=== PATIENT | male | born 1995 | race Caucasian/White ===

== ENCOUNTER 2016-09-26 14:15 | Emergency (ER) | payer SELFPAY ==
[~2016-09-26] VITALS: Ht 185.4 cm; Wt 72.5 kg
[2016-09-26 14:16] VITALS: BP 132/74; PULSE 72; RESP 20; TEMP 98.4; O2SAT 100
--- NOTE | 2016-09-26 14:20 | PD ---
Physical Exam Time Seen by Provider: 14:19 Narrative 20yo M c/o LUQ abd pain x 3 weeks. Dizziness a few days ago. Deneis N, V. + diarrhea. Patient seen in triage. VS reviewed. Awaiting bed placement. Data Data Last Documented VS Vital Signs Date Time Temp Pulse Resp B/P Pulse Ox O2 Delivery O2 Flow Rate FiO2 09/26/16 14:16 98.4 72 20 132/74 100 Room Air MDM Supervised Visit with BROCK: No Scripts No Active Prescriptions or Reported Meds Zohra Cruz September 26, 2016 14:20
[2016-09-26] MEDS ORDERED: SODIUM CHLOR 0.9% 1000 ML INJ 1,000 ML IV SCH (15:05)
--- NOTE | 2016-09-26 15:09 | PD ---
HPI Chief Complaint: Abdominal Pain Time Seen by Provider: 15:00 Travel History International Travel<30 days: No Contact w/Intl Traveler<30days: No Traveled to known affect area: No History of Present Illness HPI 20-year-old male presents for evaluation of left upper quadrant abdominal pain. Symptoms started 3 weeks ago. Describes it as a sharp pain that comes and goes, seems to be worse when he is eating or when he is working. He endorses 1- 2 episodes of diarrhea today as well. He has no pain currently but he had an episode of pain this morning while at work which prompted evaluation. Denies any nausea, vomiting, flank pain, fevers or chills, dysuria, testicular or scrotal pain. He denies any NSAID use. Never had this pain before. He endorses a brief episode of dizziness a few days ago during review of systems. No other complaints. [facility] Past Medical History Anxiety: Yes Past Surgical History Abdominal Surgery: Yes Social History Alcohol Use: No Tobacco Use: Yes Substance Use: Yes (marijuana) Allergies-Medications (Allergen,Severity, Reaction): Coded Allergies: No Known Allergies (Unverified , 09/26/16) Reported Meds & Prescriptions Reported Meds & Active Scripts Active No Active Prescriptions or Reported Medications Review of Systems Except as stated in HPI: all other systems reviewed are Neg Physical Exam Narrative GENERAL: Well-developed well-nourished male in no acute distress SKIN: Warm and dry. HEAD: Atraumatic. Normocephalic. EYES: Pupils equal and round. No scleral icterus. No injection or drainage. ENT: No nasal bleeding or discharge. Mucous membranes pink and moist. NECK: Trachea midline. No JVD. CARDIOVASCULAR: Regular rate and rhythm. No murmur appreciated. RESPIRATORY: No accessory muscle use. Clear to auscultation. Breath sounds equal bilaterally. GASTROINTESTINAL: Abdomen soft, mild left upper quadrant/epigastric tenderness to palpation without guarding. Negative Downing's. Nondistended. MUSCULOSKELETAL: No obvious deformities. No edema. NEUROLOGICAL: Awake and alert. No obvious cranial nerve deficits. Motor grossly within normal limits. Normal speech. PSYCHIATRIC: Appropriate mood and affect; insight and judgment normal. Data Data Last Documented VS Vital Signs Date Time Temp Pulse Resp B/P Pulse Ox O2 Delivery O2 Flow Rate FiO2 09/26/16 14:16 98.4 72 20 132/74 100 Room Air Orders Complete Blood Count With Diff (09/26/16 15:05) Comprehensive Metabolic Panel (09/26/16 15:05) Lipase (09/26/16 15:05) Pantoprazole Inj (Protonix Inj) (09/26/16 15:15) Sodium Chlor 0.9% 1000 Ml Inj (Ns 1000 M (09/26/16 15:05) Al-Mag Hy-Si 40-40-4 Mg/Ml Liq (Mag-Al P (09/26/16 15:15) Lidocaine 2% Viscous (Xylocaine 2% Visco (09/26/16 15:15) Labs Laboratory Tests Test 09/26/16 15:22 White Blood Count 7.9 TH/MM3 Red Blood Count 5.06 MIL/MM3 Hemoglobin 15.2 GM/DL Hematocrit 44.4 % Mean Corpuscular Volume 87.7 FL Mean Corpuscular Hemoglobin 30.0 PG Mean Corpuscular Hemoglobin 34.2 % Concent Red Cell Distribution Width 13.5 % Platelet Count 192 TH/MM3 Mean Platelet Volume 8.9 FL Neutrophils (%) (Auto) 71.0 % Lymphocytes (%) (Auto) 21.4 % Monocytes (%) (Auto) 6.4 % Eosinophils (%) (Auto) 0.8 % Basophils (%) (Auto) 0.4 % Neutrophils # (Auto) 5.6 TH/MM3 Lymphocytes # (Auto) 1.7 TH/MM3 Monocytes # (Auto) 0.5 TH/MM3 Eosinophils # (Auto) 0.1 TH/MM3 Basophils # (Auto) 0.0 TH/MM3 CBC Comment DIFF FINAL Differential Comment Sodium Level 138 MEQ/L Potassium Level 3.6 MEQ/L Chloride Level 105 MEQ/L Carbon Dioxide Level 25.8 MEQ/L Anion Gap 7 MEQ/L Blood Urea Nitrogen 14 MG/DL Creatinine 1.12 MG/DL Estimat Glomerular Filtration 84 ML/MIN Rate Random Glucose 87 MG/DL Calcium Level 8.6 MG/DL Total Bilirubin 0.5 MG/DL Aspartate Amino Transf 8 U/L (AST/SGOT) Alanine Aminotransferase 19 U/L (ALT/SGPT) Alkaline Phosphatase 52 U/L Total Protein 7.1 GM/DL Albumin 4.4 GM/DL Lipase 121 U/L [facility] Medical Decision Making Medical Screen Exam Complete: Yes Emergency Medical Condition: Yes Medical Record Reviewed: Yes Differential Diagnosis Gastritis, peptic ulcer disease, pancreatitis, gastroenteritis, enteritis, colitis Narrative Course 20-year-old male who has been having intermittent left upper quadrant abdominal pain for the past 3 weeks, one to 2 episodes of diarrhea daily. Pain seems to be worse when working, eating. Examination reveals mild left upper quadrant/ epigastric tenderness to palpation without guarding. Suspect gastritis based on initial history. Plan is for basic lab work, he'll be given IV fluids, Protonix, GI cocktail. Laboratory is unremarkable. The patient is being given information on patient assistance program. He is being discharged with Zantac. Discussed signs and symptoms that would warrant return to the emergency room. He is stable for discharge. Diagnosis Primary Impression: Gastritis Qualified Code: K29.00 - Acute gastritis without hemorrhage, unspecified gastritis type Additional Instructions: Medication as prescribed. Avoid ibuprofen, naproxen, Advil, Motrin, Aleve, aspirin-based products. Follow-up with primary care physician. Return for any emergent medical conditions. Med/Other Pt SpecificInfo: Prescription(s) given Scripts Ranitidine (Zantac)150 Mg [id number] Mg PO BID #60 TAB Ref 0 Prov:Devyn Calvillo MD 09/26/16 Disposition: 01 DISCHARGE HOME Condition: Stable Braxton Garcia September 26, 2016 15:09
[2016-09-26] MEDS ORDERED: ALUMINUM/MAGNESIUM/SIMETH 30 ML CUP PO ONE (15:15)
[2016-09-26] MEDS ORDERED: PANTOPRAZOLE SODIUM 40 MG VIAL IVP ONE (15:15)
[2016-09-26] MEDS ORDERED: LIDOCAINE VISCOUS 2% SOLN 15 ML UDC PO ONE (15:15)
[2016-09-26 15:32] LABS: AUTOMATED NEUTROPHIL # 5.6 TH/MM3 (1.8-7.7); BASOPHIL % 0.4 % (0.0-2.0); EOSINOPHIL # 0.1 TH/MM3 (0-0.4); EOSINOPHIL % 0.8 % (0.0-4.0); HEMATOCRIT 44.4 % (39.0-51.0); HEMO FLAGS DIFF FINAL; LYMPH % 21.4 % (9.0-44.0); LYMPHOCYTE # 1.7 TH/MM3 (1.0-4.8); MEAN CELL VOLUME 87.7 FL (80.0-100.0); MEAN CORPUSCULAR HGB CONC 34.2 % (32.0-36.0); MONO % 6.4 % (0.0-8.0); PLATELET COUNT 192 TH/MM3 (150-450); RED BLOOD COUNT 5.06 MIL/MM3 (4.50-5.90); RED CELL DISTRIBUTION WIDTH 13.5 % (11.6-17.2); WHITE BLOOD COUNT 7.9 TH/MM3 (4.0-11.0)
[2016-09-26 16:14] LABS: ANION GAP 7 MEQ/L (5-15); AST (GOT) 8 U/L (15-39); BICARBONATE 25.8 MEQ/L (21.0-32.0); BLOOD UREA NITROGEN 14 MG/DL (7-18); CHLORIDE 105 MEQ/L (98-107); GLOMERULAR FILTRATION RATE 84 ML/MIN (>89); POTASSIUM 3.6 MEQ/L (3.5-5.1); SODIUM (NA) 138 MEQ/L (136-145)
[2016-09-26 16:28] LABS: ALKALINE PHOSPHATASE 52 U/L (45-117); ALT (GPT) 19 U/L (9-52); TOTAL BILIRUBIN ADULT 0.5 MG/DL (0.2-1.0)
[2016-09-26] MEDS ORDERED: ZANT150T2 PO (16:31)
--- NOTE | 2016-09-26 16:32 | PD ---
Data Data Last Documented VS Vital Signs Date Time Temp Pulse Resp B/P Pulse Ox O2 Delivery O2 Flow Rate FiO2 09/26/16 14:16 98.4 72 20 132/74 100 Room Air Orders Complete Blood Count With Diff (09/26/16 15:05) Comprehensive Metabolic Panel (09/26/16 15:05) Lipase (09/26/16 15:05) Pantoprazole Inj (Protonix Inj) (09/26/16 15:15) Sodium Chlor 0.9% 1000 Ml Inj (Ns 1000 M (09/26/16 15:05) Al-Mag Hy-Si 40-40-4 Mg/Ml Liq (Mag-Al P (09/26/16 15:15) Lidocaine 2% Viscous (Xylocaine 2% Visco (09/26/16 15:15) Labs Laboratory Tests Test 09/26/16 15:22 White Blood Count 7.9 TH/MM3 Red Blood Count 5.06 MIL/MM3 Hemoglobin 15.2 GM/DL Hematocrit 44.4 % Mean Corpuscular Volume 87.7 FL Mean Corpuscular Hemoglobin 30.0 PG Mean Corpuscular Hemoglobin 34.2 % Concent Red Cell Distribution Width 13.5 % Platelet Count 192 TH/MM3 Mean Platelet Volume 8.9 FL Neutrophils (%) (Auto) 71.0 % Lymphocytes (%) (Auto) 21.4 % Monocytes (%) (Auto) 6.4 % Eosinophils (%) (Auto) 0.8 % Basophils (%) (Auto) 0.4 % Neutrophils # (Auto) 5.6 TH/MM3 Lymphocytes # (Auto) 1.7 TH/MM3 Monocytes # (Auto) 0.5 TH/MM3 Eosinophils # (Auto) 0.1 TH/MM3 Basophils # (Auto) 0.0 TH/MM3 CBC Comment DIFF FINAL Differential Comment Sodium Level 138 MEQ/L Potassium Level 3.6 MEQ/L Chloride Level 105 MEQ/L Carbon Dioxide Level 25.8 MEQ/L Anion Gap 7 MEQ/L Blood Urea Nitrogen 14 MG/DL Creatinine 1.12 MG/DL Estimat Glomerular Filtration 84 ML/MIN Rate Random Glucose 87 MG/DL Calcium Level 8.6 MG/DL Total Bilirubin 0.5 MG/DL Aspartate Amino Transf 8 U/L (AST/SGOT) Alanine Aminotransferase 19 U/L (ALT/SGPT) Alkaline Phosphatase 52 U/L Total Protein 7.1 GM/DL Albumin 4.4 GM/DL Lipase 121 U/L [facility] Supervised Visit with BROCK: Yes Narrative Course The history, exam, and medical decision-making in the associated mid-level provider note were completed with my assistance. I reviewed and agree with the findings presented. I attest that I had a [id number] encounter with the patient on the same day, and personally performed and documented my assessment and findings in the medical record. *My assessment and Findings: 20-year-old male with some left upper quadrant abdominal pain off-and-on for a couple weeks. He's had belly pain and indigestion problems for some time. It sounds like he had a fundoplication when he was an , although he is not sure exactly what surgeries had. He has indigestion a lot. She states this feels different. He's had diarrhea with it. Suspect either gastritis, or possibly IBS or IBD. No family history of IBD. Recommend outpatient follow-up is symptoms persist. Scripts Ranitidine (Zantac)150 Mg [id number] Mg PO BID #60 TAB Ref 0 Prov:Devyn Calvillo MD 09/26/16 Devyn Calvillo MD September 26, 2016 16:32
== END 2016-09-26 16:41 | disposition home or self-care (01) ==
LOC: NEPD 14:15
DX: K29.00 Acute gastritis without bleeding (principal); Z72.0 Tobacco use
CPT/HCPCS: 80053; 83690; 85025; 96361; 96374; 99284; C9113; J7030